=== PATIENT | male | born 1965 | race African-American/Black ===

== ENCOUNTER 2021-07-04 19:39 | Emergency (ER) | payer BC ==
[~2021-07-04] VITALS: Ht 167.6 cm; Wt 68.0 kg
[2021-07-04 20:03] VITALS: BP 145/90
[2021-07-04] MEDS ORDERED: ACETAMINOPHEN ES 500 MG TABLET ONE (20:19)
[2021-07-04] MEDS ORDERED: ACETAMINOPHEN ES 500 MG TABLET PO ONE (20:30)
--- NOTE | 2021-07-04 21:30 | NUR ---
CALLED CHRIS FOR IMAGING READ
[2021-07-04] MEDS ORDERED: TRAM50TA2 PO (21:51)
[2021-07-04] MEDS ORDERED: CEPH500T PO (21:51)
[2021-07-04] MEDS ORDERED: ACET-2605 PO (21:51)
--- NOTE | 2021-07-04 21:55 | NUR ---
Patient discharged to home in stable condition. Written and verbal after care instructions given. Patient verbalizes understanding of instruction. Pt ambulatory with a steady gait
== END 2021-07-04 21:56 | disposition home or self-care (01) ==
LOC: ER 19:58
DX: S62.664A Nondisplaced fracture of distal phalanx of right ring finger, initial encounter for closed fracture (principal); Z60.2 Problems related to living alone; Z79.899 Other long term (current) drug therapy; W23.0XXA Caught, crushed, jammed, or pinched between moving objects, initial encounter; Y93.89 Activity, other specified; Y92.89 Other specified places as the place of occurrence of the external cause; Y99.8 Other external cause status
CPT/HCPCS: 73140-TC

== ENCOUNTER 2021-07-05 13:50 | Emergency (ER) | payer BC ==
[~2021-07-05] VITALS: Ht 167.6 cm; Wt 67.6 kg
[~2021-07-05 13:50] MED LIST: ACET-2605 PO; CEPH500T PO; TRAM50TA2 PO
[2021-07-05 13:57] VITALS: BP 142/94
== END 2021-07-05 14:49 | disposition home or self-care (01) ==
LOC: ER 13:50
DX: S62.604D Fracture of unspecified phalanx of right ring finger, subsequent encounter for fracture with routine healing (principal); Z88.6 Allergy status to analgesic agent; Z60.2 Problems related to living alone; X58.XXXD Exposure to other specified factors, subsequent encounter